=== PATIENT | male | born 1955 | race Caucasian/White ===

== ENCOUNTER → 2018-08-29 | Day surgery (SDC) | payer OTHER ==
[~2018-08-29] MED LIST: ACETAMINOPHEN 325 MG TAB PO; AL HYDROX/MG HYDROX/SIMETH 30 ML CUP PO; FENTAnyl 50 MCG/ML VIAL; HEPARIN 1000 UNITS/ML 10 ML INJ; IODIXANOL LOCM 100 ML BTL; LIDOCAINE 1% (MDV) 20 ML INJ; MIDAZOLAM 1 MG/ML 2 ML INJ; NITROGLYCERIN (IC) 100 MCG/ML INJ; ONDANSETRON 4 MG INJ IV; SOD CHLORIDE 0.45% 1,000 ML IV; VERAPAMIL 5 MG INJ; morphine 2 MG INJ IV
[2018-08-29] MEDS: DIAZEPAM 5 MG TAB PO (08:01)
[2018-08-29] MEDS: FAMOTIDINE 20 MG TAB PO (08:01)
[2018-08-29] MEDS: DIPHENHYDRAMINE 50 MG CAP PO (08:01)
[2018-08-29 08:02] LABS: ADD MAN DIFF? NO
[2018-08-29 08:06] LABS: BASOPHILS % 0.6 % (0.0-2.0); EOSINOPHILS # 0.2 10^3/ul (0.0-0.5); EOSINOPHILS % 3.1 % (0.0-7.0); HEMOGLOBIN 13.5 g/dl (14.0-18.0); LYMPHOCYTES # 2.1 10^3/ul (0.8-2.9); LYMPHOCYTES % 39.6 % (15.0-51.0); MEAN CORPUSCULAR HEMOGLOBIN 30.3 pg (29.0-33.0); MEAN CORPUSCULAR HGB CONC 32.9 g/dl (32.0-37.0); MEAN CORPUSCULAR VOLUME 92.1 fl (82.0-101.0); MEAN PLATELET VOLUME 10.6 fl (7.4-10.4); MONOCYTE # 0.5 10^3/ul (0.3-0.9); MONOCYTES % 8.6 % (0.0-11.0); NEUTROPHIL # 2.5 10^3/ul (1.6-7.5); NEUTROPHILS % 47.9 % (39.0-77.0); PLATELET COUNT 203 10^3/UL (140-415); RED BLOOD COUNT 4.45 10^6/ul (4.70-6.10); RED CELL DISTRIBUTION WIDTH 12.5 % (11.5-14.5)
[2018-08-29 08:06] LABS: WHITE BLOOD COUNT 5.2 10^3/ul (4.8-10.8)
[2018-08-29 08:25] LABS: ANION GAP 11 (5-13); BLOOD UREA NITROGEN 19 mg/dl (7-20); CALCIUM 9.7 mg/dl (8.4-10.2); CARBON DIOXIDE 25 mmol/L (21-31); CHLORIDE 105 mmol/L (97-110); CHOL/HDL RATIO 3.5 RATIO; CHOLESTEROL 133 mg/dl (100-200); CREATININE 0.98 mg/dl (0.61-1.24); Estimated GFR > 60 mL/min (>60); GLUCOSE 129 mg/dl (70-220); HDL CHOLESTEROL 38 mg/dl (30-78); INR 0.85; LDL CHOLESTEROL,CALCULATED 60 mg/dl; POTASSIUM 4.3 mmol/L (3.5-5.1); PROTIME 11.7 Sec (11.9-14.9); PT RATIO 0.9; SODIUM 141 mmol/L (135-144); TRIGLYCERIDES 177 mg/dl (0-149)
[2018-08-29 08:26] LABS: PARTIAL THROMBOPLASTIN TIME 26.4 Sec (23.0-35.0)
[2018-08-29] MEDS: SOD CHLORIDE 0.9% 1,000 ML IV (10:22)
== END | disposition home or self-care (01) ==
LOC: SDS 07:17
DX: I25.10 Atherosclerotic heart disease of native coronary artery without angina pectoris (principal); I10 Essential (primary) hypertension; E78.5 Hyperlipidemia, unspecified; E78.00 Pure hypercholesterolemia, unspecified
CPT/HCPCS: 71045; 80048; 80061; 85025; 85610; 85730; 93005; 93459